=== PATIENT | male | born 1960 | race Caucasian/White ===

== ENCOUNTER 2017-11-11 18:24 | Emergency (ER) | payer OTHER ==
--- NOTE | 2017-11-11 19:08 | RADIOLOGY REPORT ---
EXAMINATION: XR CHEST CLINICAL INFORMATION: Neck pain. Atypical chest pain. COMPARISON: None TECHNIQUE: 2 views of the chest were obtained. FINDINGS: No focal consolidation, pleural effusion or pneumothorax. Heart size is normal. Degenerative changes of the spine. IMPRESSION: No acute cardiopulmonary process.
--- NOTE | 2017-11-11 19:14 | CT SCAN REPORT ---
EXAMINATION: CT HEAD WITHOUT CONTRAST CLINICAL INFORMATION: Pleural vision COMPARISON: None TECHNIQUE: Contiguous axial imaging was performed from the skull base to vertex without intravenous administration of contrast. DLP: 606 mGy-cm FINDINGS: There is no evidence of acute intracranial hemorrhage or territorial infarction. No abnormal mass effect or midline shift is seen. [place] to white matter differentiation is well preserved. Bifrontal symmetrical CSF isointense fluid is noted without any mass effect. This measures up to approximately 12 mm in thickness. The ventricles are normal in size. There is no abnormal attenuation within the brain parenchyma. The osseous structures and soft tissues are normal. The mastoid air cells and visualized portions of the paranasal sinuses are notable for minor ethmoid sinus disease. IMPRESSION: No acute intracranial pathology. Findings suggest subdural hygromas bifrontally. No acute hemorrhage. Minor ethmoid sinus disease.
[2017-11-11 20:08] LABS: ABSOLUTE BASOPHIL COUNT 0.1 /CUMM (0.0-0.2); ABSOLUTE EOSINOPHIL COUNT 0.1 /CUMM (0.0-0.7); ABSOLUTE GRANULOCYTE CT 13.1 /CUMM (1.4-6.5); ABSOLUTE LYMPH COUNT 0.8 /CUMM (1.2-3.4); ABSOLUTE MONOCYTE COUNT 1.2 /CUMM (0.10-0.60); BASOPHIL % 0.4 % (0.0-2.0); EOSINOPHIL % 0.5 % (0-5); GRANULOCYTE % 86.3 % (42.2-75.2); HEMATOCRIT 41.2 % (42-52); MEAN CORPUSCULAR HGB CONC 34.6 G/DL (33.0-37.0); MEAN CORPUSCULAR VOLUME 89.4 FL (80.0-94.0); MEAN PLATELET VOLUME 8.3 FL (7.4-10.4); PLATELET COUNT 157 /CUMM (130-400); RBC DISTRIBUTION WIDTH 14.2 % (11.5-14.5); RED BLOOD CELL CT 4.61 /CUMM (4.70-6.10); WHITE BLOOD CELL COUNT 15.2 /CUMM (4.8-10.8)
[2017-11-11] MEDS ORDERED: RED YEAST RICE600 MG PO (21:11)
[2017-11-11] MEDS ORDERED: LISINOPRIL-HCT1 EACH PO (21:11)
[2017-11-11] MEDS ORDERED: [UNRECOGNIZED DRUG - OTHER] PO (21:12)
[2017-11-11] MEDS ORDERED: B COMPLEX1 EACH PO (21:12)
[2017-11-11] MEDS ORDERED: VITAMIN C500 M6 PO (21:12)
[2017-11-11] MEDS ORDERED: ASPIRIN EC81 M1 PO (21:13)
--- NOTE | 2017-11-11 21:32 | ED GENERAL ADULT ---
History of Present Illness General Chief Complaint: General Adult Stated Complaint: BACK PAIN; BLURRY VISION AT WORK Source: patient, family, old records Exam Limitations: no limitations Vital Signs & Intake/Output Vital Signs & Intake/Output Vital Signs Date Time Temp Pulse Resp B/P B/P Pulse O2 O2 Flow FiO2 Mean Ox Delivery Rate 11/12 2219 98.7 86 20 136/74 97 Room Air 11/113 Room Air 11/110 99.3 96 20 137/83 97 Room Air 11/11 1827 99.8 106 16 141/88 97 Room Air Allergies Coded Allergies: No Known Allergies (11/11/17) Reconcile Medications Ascorbate Calcium (Vitamin C) (Unknown Strength) TABLET (Unknown Dose) PO DAILY SUPPLEMENT (Reported) Aspirin (Ecotrin*) 81 MG TABLET.DR 1 TAB PO ONCE HEART/BLOOD (Reported) Baclofen 10 MG TABLET 1 TAB PO TIDPRN PRN muscle spasm/strain [HIBISCUS] (Unknown Strength) (Unknown Dose) PO DAILY SUPPLEMENT (Reported) Ibuprofen 600 MG TABLET 1 TAB PO Q6P PRN pain with food Lisinopril/Hydrochlorothiazide (Lisinopril-Hctz 20-12.5 MG Tab) 20 MG-12.5 MG TABLET 1 TAB PO DAILY BP (Reported) Red Yeast Rice 600 MG TABLET 1 TAB PO BID SUPPLEMENT (Reported) Tramadol HCl (Ultram) 50 MG TABLET 1-2 TAB PO Q6P PRN severe pain Vitamin B Complex (B Complex) 1 EACH TABLET 1 TAB PO DAILY SUPPLEMENT ( Reported) Core Measure Meds Pre-Hospital aspirin Triage Note: PT TO ED WITH C/O "BRAIN ZAP" TODAY WHILE AT WORK, WHICH "ALMOST KNOCKED ME." PT ALSO SELF DIAGNOSED HIMSELF WITH A TIA LAST WEEK. REPORTS LEFT SIDED NECK PAIN AND BLURRED VISION WELL. [place] STROKE NEGATIVE, SPEECH CLEAR IN TRIAGE. DENIES CP, SOB. ALSO REPORTS FEVERS/CHILLS. DENIES COUGH. Triage Nurses Notes Reviewed? yes Onset: Just prior to arrival Duration: constant, continues in ED Timing: recent history Severity: moderate, severe Modifying Factors: Worsens With: movement. Associated Symptoms: back pain HPI: 3 months prior to admission patient complains of shock to his brain causing him to become off balance lasting a short period of time resolving spontaneously. 10 days prior to admission while driving he complained of feeling confused with blurry vision again lasting a short period of time resolving spontaneously. Several days prior to admission complains of increasing low back pain sharp. Today the pain intensified and radiated to both lower extremities. Denies fever chills nausea vomiting diarrhea abdominal pain chest pain shortness of breath dysuria rash bleeding change in motor sensory function change in bowel bladder habits Past History Travel History Traveled to [place] past 21 day No Medical History Any Pertinent Medical History? see below for history Cardiovascular: AFIB, hypertension Surgical History Surgical History: non-contributory Psychosocial History What is your primary language Albanian Tobacco Use: Current Daily Use Daily Tobacco Use Amount/Type: =< 4 Cigarettes daily Family History Hx Contributory? No Review of Systems Review of Systems Constitutional: Reports: no symptoms. EENTM: Reports: see HPI, blurred vision. Respiratory: Reports: no symptoms. Cardiovascular: Reports: no symptoms. GI: Reports: no symptoms. Genitourinary: Reports: no symptoms. Musculoskeletal: Reports: see HPI, back pain. Skin: Reports: no symptoms. Neurological/Psychological: Reports: see HPI, weakness. Hematologic/Endocrine: Reports: no symptoms. Immunologic/Allergic: Reports: no symptoms. All Other Systems: Reviewed and Negative Physical Exam Physical Exam General Appearance: well developed/nourished, alert, awake, anxious, mild distress Head: atraumatic, normal appearance Eyes: Bilateral: normal appearance, PERRL, EOMI. Ears, Nose, Throat: normal pharynx, normal ENT inspection, hearing grossly normal Neck: normal inspection, supple, full range of motion, no midline tenderness Respiratory: normal breath sounds, chest non-tender, no respiratory distress, quiet respiration, lungs clear Cardiovascular: regular rate/rhythm, normal peripheral pulses, norml femoral pulses equa Peripheral Pulses: 4+ carotid (R), 4+ carotid (L) Gastrointestinal: normal bowel sounds, soft, non-tender, no organomegaly Back: normal inspection, normal range of motion, muscle spasm, no vertebral tenderness Extremities: normal inspection, normal capillary refill, normal range of motion, no edema Neurologic/Psych: no motor/sensory deficits, awake, alert, oriented x 3, normal gait, normal mood/affect, butt sawyer II-XII nml as tested Reflexes: 2+: bicep (R), bicep (L), knee (R), knee (L). Skin: intact, normal color, warm/dry Lymphatic: no anterior cervical dusty Core Measures ACS in differential dx? No CVA/TIA Diagnosis: No Sepsis Present: No Sepsis Focused Exam Completed? No Progress Differential Diagnoses I considered the following diagnoses in my evaluation of the patient: CVA TIA sciatica degenerative arthritis Plan of Care: Orders Procedure Date/time Status TROPONIN LEVEL 11/11 1830 Complete COMPREHENSIVE METABOLIC PANEL 11/11 1830 Complete CBC WITHOUT DIFFERENTIAL 11/11 1830 Complete EKG 11/11 1830 Active Laboratory Tests 11/11/17 1939: Anion Gap 11, Estimated GFR > 60, BUN/Creatinine Ratio 25.0, Glucose 98, Calcium 9.2, Total Bilirubin 0.6, AST 26, ALT 40, Alkaline Phosphatase 54, Troponin I < 0.01, Total Protein 6.9, Albumin 4.3, Globulin 2.6, Albumin/Globulin Ratio 1.7, CBC w Diff NO MAN DIFF REQ, RBC 4.61 L, MCV 89.4, MCH 31.0, MCHC 34.6, RDW 14.2 , MPV 8.3, Gran % 86.3 H, Lymphocytes % 5.0 L, Monocytes % 7.8, Eosinophils % 0.5, Basophils % 0.4, Absolute Granulocytes 13.1 H, Absolute Lymphocytes 0.8 L , Absolute Monocytes 1.2 H, Absolute Eosinophils 0.1, Absolute Basophils 0.1 Diagnostic Imaging: Viewed by Me: CT Scan. Discussed w/RAD: CT Scan. Radiology Impression: Notable facet joint degeneration with synovial cysts and disc bulging/broad-based disc protrusion L4-L5 resulting in moderate central canal and lateral recess narrowing. Consider MRI for more detailed assessment. CXR Impression: no acute abnormality, no infiltrates Initial ED EKG: normal axis, normal intervals, normal p-waves, normal QRS complex, normal sinus rhythm, no ST T wave changes Departure Departure Time of Disposition: 2228 Disposition: HOME OR SELF CARE Condition: Stable Clinical Impression Primary Impression: Subdural hygroma Secondary Impressions: Sciatica associated with disorder of lumbar spine Referrals: Kevin JONES,Yomi Torre Call for neurology follow up Christina Hernandez MD Call for neurosurgical follow up Nasra JONES,Pedro Luis Mccormack Call for orthopedic follow up Departure Forms: Customer Survey General Discharge Information Prescriptions: Current Visit Scripts Ibuprofen 1 TAB PO Q6P PRN pain #50 TAB with food Baclofen 1 TAB PO TIDPRN PRN muscle spasm/strain #30 TAB Tramadol HCl (Ultram) 1-2 TAB PO Q6P PRN severe pain #30 TAB Critical Care Note Critical Care Note Critical Care Time: non-applicable
--- NOTE | 2017-11-11 21:56 | CT SCAN REPORT ---
EXAMINATION: CT LUMBAR SPINE WITHOUT CONTRAST CLINICAL INFORMATION: Back pain with radiculopathy COMPARISON: None TECHNIQUE: Helical non-contrast CT images were obtained through the lumbar spine and 1.25 and 2.5 mm axial reconstructions were reviewed along with sagittal and coronal MPRs. DLP: 1255 mGy-cm FINDINGS: There is minor superior endplates stature loss at L1. Generalized mild endplate spurring. Posterior elements are intact but there is mild degeneration of the facet joint at L4-L5. No paraspinal soft tissue abnormality. SPINAL LEVELS: T12-L1: Normal. L1-L2: Minimal posterior annular disc bulging and minor facet arthropathy without spinal stenosis. L2-L3: Similar minor posterior annular disc bulging and facet arthropathy without spinal stenosis. L3-L4: Similar minor posterior annular disc bulging and minor facet arthropathy without spinal stenosis. L4-L5: There is more pronounced moderate posterior broad-based disc bulging with superimposed broad-based central disc protrusion associated with moderate degeneration of both facet joints with vacuum phenomena. Notable thickening/buckling of the ligamenta flava bilaterally. Small air-filled synovial cysts extends into the central canal from both facet joints. There is resultant moderate central canal and lateral recess narrowing. No significant neuroforaminal stenosis. L5-S1: Broad-based posterior disc bulging and moderate facet arthropathy without spinal stenosis or neuroforaminal narrowing. IMPRESSION: Notable facet joint degeneration with synovial cysts and disc bulging/broad-based disc protrusion L4-L5 resulting in moderate central canal and lateral recess narrowing. Consider MRI for more detailed assessment.
[2017-11-11 22:20] VITALS: BP 136/74
[2017-11-11] MEDS ORDERED: BACLOFEN10 M1 PO (22:33)
[2017-11-11] MEDS ORDERED: ULTRAM50 M1 PO (22:33)
[2017-11-11] MEDS ORDERED: IBUPROFEN600 M1 PO (22:33)
== END 2017-11-11 22:56 ==
LOC: ERH 18:24
PROVIDERS: Physician Assistant Medical
DX: D18.1 Lymphangioma, any site (principal); M51.16 Intervertebral disc disorders with radiculopathy, lumbar region; I48.91 Unspecified atrial fibrillation; I10 Essential (primary) hypertension; F17.210 Nicotine dependence, cigarettes, uncomplicated
CPT/HCPCS: 71046; 93005; 93010; 96372; J1885